=== PATIENT | female | born 1970 | race Hispanic/Latino ===

== ENCOUNTER 2016-08-15 06:11 | Day surgery (SDC) | payer MEDICAID ==
[~2016-08-15 06:11] MED LIST: ANCEF/STERILE WATER 2 GM/20 ML IV NR
[2016-08-15] MEDS ORDERED: NACL BACTERIOSTATIC INFILTRATI ONE (06:43)
--- NOTE | 2016-08-15 07:01 | Anesthesia Day of Surgery ---
Anesthesia Day of Surgery - Day of Surgery Patient Examined: Yes Patient H&P Reviewed: Yes Patient is NPO: Yes
--- NOTE | 2016-08-15 07:01 | Anesthesia Consultation ---
Anesthesia Consult and Med Hx Date of service: 08/15/16 - Airway Anesthetic Teeth Evaluation: Good ROM Head & Neck: Adequate Mental/Hyoid Distance: Adequate Mallampati Class: Class III Intubation Access Assessment: Possibly Difficult - Pulmonary Exam CTA: Yes - Cardiac Exam Cardiac Exam: RRR - Pre-Operative Health Status ASA Pre-Surgery Classification: ASA2 Proposed Anesthetic Plan: General - Pulmonary Hx Smoking: Yes (STOPPED X 6 YRS-1 PPD X 20 YRS) Hx Asthma: (dry cough) Hx Sleep Apnea: No (RONALD PRE SCREEN LOW RISK) - Cardiovascular System Hx Hypertension: Yes (2013) Hx Heart Murmur: Yes (CAUSES NO PROBLEMS, not heard this am) - Gastrointestinal Hx Gastroesophageal Reflux Disease: Yes (took zantac this am) - Other Systems Hx Cancer: No
[2016-08-15] MEDS ORDERED: NORCO 5/325 PO PRN ×2 (07:02→10:00)
[2016-08-15] MEDS ORDERED: ZOFRAN IV PRN (07:02)
[2016-08-15] MEDS ORDERED: DIPRIVAN 10 MG/ML IV ONE (07:12)
[2016-08-15] MEDS ORDERED: DILAUDID ONE (07:13)
[2016-08-15] MEDS ORDERED: XYLOCAINE MPF 2% ONE (07:14)
[2016-08-15 07:24] LABS: Hematocrit 39.5 % (30.3-42.9)
[2016-08-15] MEDS ORDERED: PEPCID IV NR (08:00)
[2016-08-15] MEDS ORDERED: LACTATED RINGERS 1,000 ML IV SCH (08:00)
[2016-08-15] MEDS ORDERED: VERSED IV NR (08:00)
[2016-08-15] MEDS ORDERED: ZOFRAN ONE (08:19)
[2016-08-15] MEDS ORDERED: DECADRON ONE (08:20)
[2016-08-15] MEDS ORDERED: NACL 0.9% IR ONE (08:45)
--- NOTE | 2016-08-15 08:59 | Operative Report ---
PREOPERATIVE DIAGNOSIS: Left volar ganglion cyst. POSTOPERATIVE DIAGNOSIS: Left lower ganglion cyst. PROCEDURE: Excision of left volar ganglion cyst. SURGEON: Joey Shah MD DESCRIPTION OF PROCEDURE: The patient was brought to the operating room and placed on the table in supine position. Following administration of general anesthesia, the left arm was prepped with Betadine solution and draped in the usual sterile manner. The hand and forearm were exsanguinated with an Esmarch bandage, followed by elevation of tourniquet to 250 mmHg for approximately 20 minutes. A transverse skin incision was made following wrist skin crease through subcutaneous fat, dissecting down to the volar ganglion cyst, being careful to spare the radial artery and radial nerve, which were visualized. Specimens were excised and sent to pathology as specimen. Closure was performed in layers using interrupted and running subcuticular 4-0 Monocryl sutures. Mastisol, Steri-Strips, and sterile dressings applied. The patient tolerated the procedure well and returned to recovery room in stable condition. JOB# [id number]
[2016-08-15] MEDS: DILAUDID IV PRN ×2 (09:15→09:25)
[2016-08-15 10:12] VITALS: BP 126/82
--- NOTE | 2016-08-15 15:48 | Post Anesthesia Evaluation ---
- Post Anesthesia Evaluation Patient Participated: Yes Airway Patent: Yes Stable Respiratory Function: Yes Nausea/Vomiting: No Temp > 96.8F: Yes Pain Manageable: Yes Adequeate Hydration: Yes Anesthesia Complications: No Block Receding Appropriately: Not Applicable Patient on Ventilator: No
== END 2016-08-15 10:40 | disposition home or self-care (01) ==
LOC: OR 06:11
PROVIDERS: ATTEND Plastic Surgery
DX: M67.432 Ganglion, left wrist (principal); I10 Essential (primary) hypertension; E78.00 Pure hypercholesterolemia, unspecified; K21.9 Gastro-esophageal reflux disease without esophagitis; M19.90 Unspecified osteoarthritis, unspecified site; Z98.51 Tubal ligation status; Z87.891 Personal history of nicotine dependence; Z83.3 Family history of diabetes mellitus; Z81.8 Family history of other mental and behavioral disorders; Z82.5 Family history of asthma and other chronic lower respiratory diseases; Z82.61 Family history of arthritis; Z83.6 Family history of other diseases of the respiratory system
CPT/HCPCS: 25111; 36415; 84132; 85014; 85018; 88304; J0690; J1100; J1170; J2250; J2405; J2704; J7120